=== PATIENT | male | born 1955 | race Caucasian/White ===

== ENCOUNTER 2022-02-21 05:36 | Inpatient (IN) | payer MEDICARE, OTHER ==
[2022-02-21] MEDS ORDERED: Levofloxacin 500 mg/D5W 100 ml Premix Bag ONE (06:02)
[2022-02-21] MEDS ORDERED: Bupivacaine HCl 0.5%/Epinephrine 1:200,000/PF 30 ml Vial ONE (06:11)
[2022-02-21] MEDS ORDERED: Neomycin-Polymyxin 1 ML AMP ONE (06:11)
[2022-02-21] MEDS ORDERED: Thrombin 5000 UNITS/5 ML VIAL ONE (06:11)
[2022-02-21] MEDS ORDERED: fentaNYL PF 100 MCG/2 ML SYRINGE ONE (06:37)
[2022-02-21] MEDS ORDERED: HYDROmorphone 0.5 MG/0.5 ML SYRINGE ONE (06:38)
[2022-02-21] MEDS ORDERED: Clindamycin/D5W 900 mg/50 ml Premix Bag ONE ×3 (06:51→19:20)
[2022-02-21] MEDS ORDERED: Vecuronium 10 MG VIAL ONE (07:09)
[2022-02-21] MEDS ORDERED: Dexamethasone 20 MG/5 ML VIAL ONE (07:09)
[2022-02-21] MEDS ORDERED: ePHEDrine 50 MG/ML VIAL ONE (07:09)
[2022-02-21] MEDS ORDERED: PROPOFOL 200 MG/20 ML VIAL ONE (07:09)
[2022-02-21] MEDS ORDERED: Rocuronium Bromide 10 MG/ML (10ML VIAL) ONE (07:09)
[2022-02-21] MEDS ORDERED: Ondansetron PF 4 MG/2 ML Vial ONE ×2 (07:09→15:35)
[2022-02-21] MEDS ORDERED: Glycopyrrolate 0.2 MG/ML 5 ML SYRINGE ONE (07:09)
[2022-02-21] MEDS ORDERED: NEOSTIGMINE 3 MG/3 ML SYR 3 MG/3 ML SYRINGE ONE (07:09)
[2022-02-21] MEDS ORDERED: diphenhydrAMINE 50 MG/ML VIAL IVP PRN (07:16)
[2022-02-21] MEDS ORDERED: HYDROcodone/Acetaminophen 10/325 mg Tablet PO PRN (07:16)
[2022-02-21] MEDS ORDERED: Cyclobenzaprine 10 MG TAB PO PRN (07:16)
[2022-02-21] MEDS ORDERED: Bisacodyl 10 MG SUPP PR PRN (07:16)
[2022-02-21] MEDS ORDERED: Acetaminophen 325 MG TAB PO PRN (07:16)
[2022-02-21] MEDS ORDERED: Ondansetron PF 4 MG/2 ML Vial IVP PRN (07:16)
[2022-02-21] MEDS ORDERED: Mag-Al 1200 mg/1200 mg/30 ML UDCUP PO PRN (07:16)
[2022-02-21] MEDS ORDERED: Morphine 4 MG/ML VIAL SLOW IVP PRN (07:16)
[2022-02-21] MEDS ORDERED: Prochlorperazine 10 MG/2 ML VIAL IM PRN (07:16)
[2022-02-21 07:27] LABS: SARS-CoV-2 NAA Rapid Test Not Detected (NotDetected)
[2022-02-21] MEDS ORDERED: Phenylephrine 10 MG/ML VIAL ONE ×2 (11:08→11:21)
[2022-02-21] MEDS ORDERED: PHENYLEPHRINE-NS 100 MCG/ML 10 ML SYRINGE ONE (13:37)
[2022-02-21] MEDS ORDERED: Promethazine HCl 25 MG/ML VIAL IVPB PRN (13:43)
[2022-02-21] MEDS ORDERED: Promethazine HCl 25 MG/ML VIAL IM PRN (13:43)
[2022-02-21] MEDS ORDERED: Ondansetron HCl/PF 4 MG/2 ML Vial IVP PRN (13:43)
[2022-02-21] MEDS ORDERED: HYDROmorphone 2 MG/ML VIAL SLOW IVP PRN (13:43)
[2022-02-21] MEDS: Clindamycin/D5W 900 MG in Premix Bag 1 BAG IVPB SCH ×2 (15:24→23:02)
[2022-02-21] MEDS: Sodium Chloride 0.9% 1,000 ML IV SCH (15:24)
[2022-02-21] MEDS ORDERED: Promethazine HCl 25 MG/ML VIAL ONE (16:17)
[2022-02-21] MEDS ORDERED: FENTANYL 50 MCG/ML 1 ML VIAL ONE (16:17)
[2022-02-21] MEDS ORDERED: Tamsulosin HCl 0.4 MG CAP ONE (20:26)
[2022-02-22] MEDS ORDERED: Tamsulosin HCl 0.4 MG CAP ONE (05:31)
[2022-02-22] MEDS: Tamsulosin HCl 0.4 MG CAP PO SCH (05:51)
[2022-02-22] MEDS: Gabapentin 100 MG CAP PO SCH ×3 (10:13→20:07)
[2022-02-22] MEDS: Sodium Chloride 0.9% 1,000 ML IV SCH ×2 (12:12→22:42)
[2022-02-22 12:13] VITALS: BMI 24.8
[2022-02-22] MEDS: HYDROcodone/Acetaminophen 7.5/325 mg Tablet PO PRN (15:08)
[2022-02-22] MEDS: Acetaminophen/Codeine 30-300mg Tablet PO PRN (20:06)
[2022-02-23] MEDS: Tamsulosin HCl 0.4 MG CAP PO SCH (06:40)
[2022-02-23] MEDS: HYDROcodone/Acetaminophen 7.5/325 mg Tablet PO PRN (06:58)
[2022-02-23 07:53] LABS: #Lymphocytes 1.6 thou/uL (1.20-3.40); #Monocytes 1.2 thou/uL (0.11-0.59); #Neutrophils 9.4 thou/uL (1.40-6.50); %Basophils 0.1 % (0.0-1.0); %Eosinophils 0.2 % (0.0-10.0); %Lymphocytes 13.3 % (21.0-51.0); %Monocytes 9.5 % (0.0-10.0); %Neutrophils 76.9 % (42.0-75.0); Hemoglobin 12.4 g/dL (14.0-18.0); Mean Corpuscular HGB CONC 32.5 g/dL (32.0-36.0); Mean Corpuscular Hemoglobin 30.6 pg (27.0-31.0); Mean Platelet Volume 7.6 fL (7.4-10.4); Platelet Count 171 10x3/uL (130-400); RBC Distribution Width 12.5 % (11.5-14.5); Red Blood Cell (RBC) Count 4.06 mill/uL (4.70-6.10); White Blood Cell (WBC) Count 12.2 10x3/uL (4.8-10.8)
[2022-02-23] MEDS: Milk Of Magnesia 30 ML UDCUP PO PRN (08:45)
[2022-02-23] MEDS: Gabapentin 100 MG CAP PO SCH ×3 (08:45→20:53)
[2022-02-23] MEDS: Sodium Chloride 0.9% 1,000 ML IV SCH ×2 (11:58→20:47)
[2022-02-23] MEDS: Acetaminophen/Codeine 30-300mg Tablet PO PRN ×2 (16:54→20:54)
[2022-02-24] MEDS: Milk Of Magnesia 30 ML UDCUP PO PRN (05:02)
[2022-02-24] MEDS: Tamsulosin HCl 0.4 MG CAP PO SCH (05:02)
[2022-02-24] MEDS: Acetaminophen/Codeine 30-300mg Tablet PO PRN (05:18)
[2022-02-24 08:54] VITALS: BP 124/75; TEMP 97.3
[2022-02-24] MEDS: Gabapentin 100 MG CAP PO SCH (08:56)
== END 2022-02-24 11:05 | disposition home or self-care (01) | DRG 455 ==
LOC: SDC 05:36 → MSONC 02-22 12:04
PROVIDERS: ADMIT Neurological Surgery; ATTEND Neurological Surgery
PROC: 0SG00AJ Fusion of Lumbar Vertebral Joint with Interbody Fusion Device, Posterior Approach, Anterior Column, Open Approach (ICD-10-PCS; principal; 2022-02-21)
PROC: 0SG0071 Fusion of Lumbar Vertebral Joint with Autologous Tissue Substitute, Posterior Approach, Posterior Column, Open Approach (ICD-10-PCS; 2022-02-21)
PROC: 0SB20ZZ Excision of Lumbar Vertebral Disc, Open Approach (ICD-10-PCS; 2022-02-21)
PROC: 01NB0ZZ Release Lumbar Nerve, Open Approach (ICD-10-PCS; 2022-02-21)
PROC: 01NR0ZZ Release Sacral Nerve, Open Approach (ICD-10-PCS; 2022-02-21)
DX: M48.062 Spinal stenosis, lumbar region with neurogenic claudication (principal); M43.16 Spondylolisthesis, lumbar region; Z20.822 Contact with and (suspected) exposure to COVID-19; Z98.890 Other specified postprocedural states; Z87.891 Personal history of nicotine dependence; Z88.8 Allergy status to other drugs, medicaments and biological substances; Z88.0 Allergy status to penicillin
CPT/HCPCS: 36415; 85025; C1713; C1768; C1776; C1889; J0780; J1100; J1170; J1956; J2370; J2405; J2550; J2704; J3010; J3370; J3490; U0002